=== PATIENT | female | born 1965 | race Two or more races ===

== ENCOUNTER 2020-02-19 18:46 | Emergency (ER) | payer MEDICAID ==
[~2020-02-19] VITALS: Ht 157.5 cm; Wt 63.5 kg
[2020-02-19 19:03] VITALS: BP 137/86
[2020-02-19 19:10] VITALS: BP 164/85
--- NOTE | 2020-02-19 19:27 | Emergency Room Report ---
History of Present Illness General Chief Complaint: Multiple Trauma/Fall Source: Patient Present Illness HPI Patient is a 54-year-old female presents after recent fall. She reports of increased right-sided hip pain. She had been able to ambulate since the fall. Denies loss of consciousness. Denies any other locations of pain. She denies any prior medical history. She States she fell onto a tile floor. Allergies: Coded Allergies: No Known Allergies (Unverified , 02/19/20) COVID-19 Screening Contact w/high risk pt: No Experienced COVID-19 symptoms?: No COVID-19 Testing performed DELI DEPARTMENT MANAGER: No Patient History Past Medical History: see triage record Reviewed Nursing Documentation: PMH: Agreed; PSxH: Agreed Nursing Documentation-PMH Past Medical History: No Stated History Review of Systems All Other Systems: negative except mentioned in HPI Physical Exam Vital Signs Date Time Temp Pulse Resp B/P (MAP) Pulse Ox O2 Delivery O2 Flow Rate FiO2 02/19/20 18:42 86 14 140/88 (105) 98 Room Air 02/19/20 19:03 98.0 02/19/20 19:03 100 Sp02 EP Interpretation: reviewed, normal General Appearance: normal inspection, well appearing, no apparent distress, alert, GCS 15, obese Head: atraumatic ENT: normal ENT inspection, hearing grossly normal, normal voice Neck: normal inspection, full range of motion, supple, no bony tend Respiratory: normal inspection, lungs clear, normal breath sounds, no respiratory distress, no retraction, no wheezing Cardiovascular #1: regular rate, rhythm, no edema Gastrointestinal: normal inspection, normal bowel sounds, non tender, soft, no guarding, no hernia Genitourinary: no CVA tenderness Musculoskeletal: normal inspection, back normal, other - decreased range of motion to right lower extremity. Neurologic: alert, motor strength/tone normal, coil inspector III-XII nml as tested, oriented x3, responsive, speech normal, normal inspection Psychiatric: normal inspection, judgement/insight normal, mood/affect normal Medical Decision Making Diagnostic Impression: Primary Impression: Fall Additional Impression: Muscle contusion ER Course Patient presented after a fall. Differential diagnosis include was not limited to fracture, contusion, dislocation among others. Because of complexity of patient's case laboratory tests and imaging studies were ordered. CT imaging was ordered due to the patient's recent fall. She was given pain medications.CT imaging showed no evidence of acute fracture there was noted to be a remote healing fracture of the pubic ramus to the right side see radiology report for full details. Patient was able to ambulate with crutches. She was noted to have improvement in pain. Patient was advised to follow-up with her primary care physician for recheck. She is advised to keep her leg elevated and ice the area that was having discomfort. Was advised to return if worse. She was advised to remove the Osbaldo wrap daily. The patient is advised to follow up with primary care doctor in 1-2 days. Patient is advised to return if any worsening condition or if any changes in status that are concerning. This report is dictated with [employer] group exercise instructor software which may occasionally lead to discrepancies related to use of this software. Last Vital Signs Date Time Temp Pulse Resp B/P (MAP) Pulse Ox O2 Delivery O2 Flow Rate FiO2 02/19/20 19:03 92 16 Room Air 100 02/19/20 19:03 98.0 137/86 100 Status: improved Disposition: HOME, SELF-CARE Condition: Stable Scripts Acetaminophen* (ACETAMINOPHEN EXTRA STRENGTH*) 500 Mg Tablet 500 MG ORAL Q8H PRN for Fever/Headache/Mild Pain, #30 TAB Prov: Tu Bartlett MD 02/19/20 Ibuprofen* (MOTRIN*) 600 Mg Tablet 600 MG ORAL Q8H PRN for FOR PAIN, #20 TAB 0 Refills Prov: Tu Bartlett MD 02/19/20 Tu Bartlett MD Feb 19, 2020 19:27
[2020-02-19] MEDS ORDERED: Morphine Sulfate 4mg/ml Inj (IV USE ONLY) IVP ONE (19:45)
[2020-02-19 19:46] LABS: BASOPHILS % (AUTO) 0.6 % (0.0-2.0); EOSINOPHILS % (AUTO) 1.9 % (0.0-3.0); HEMATOCRIT 42.6 % (37.0-47.0); HEMOGLOBIN 14.4 G/DL (12.0-16.0); LYMPHOCYTES % (AUTO) 19.4 % (20.0-45.0); MEAN CORPUSCULAR VOLUME 86 FL (80-99); MONOCYTES % (AUTO) 2.5 % (1.0-10.0); NEUTROPHILS % (AUTO) 75.7 % (45.0-75.0); PLATELET COUNT 392 K/UL (150-450); RED BLOOD COUNT 4.95 M/UL (4.20-5.40); RED CELL DISTRIBUTION WIDTH 12.4 % (11.6-14.8); WHITE BLOOD COUNT 11.5 K/UL (4.8-10.8)
[2020-02-19 19:48] LABS: ANION GAP 11 mmol/L (5-15); BLOOD UREA NITROGEN 13 mg/dL (7-18); CALCIUM 9.7 MG/DL (8.5-10.1); CARBON DIOXIDE 27 MMOL/L (21-32); CHLORIDE 105 MMOL/L (98-107); CREATININE 1.1 MG/DL (0.55-1.30); POTASSIUM 3.4 MMOL/L (3.5-5.1); SODIUM 143 MMOL/L (136-145)
[2020-02-19 19:53] LABS: ALANINE AMINOTRANSFERASE 29 U/L (12-78); ALBUMIN 3.5 G/DL (3.4-5.0); ALBUMIN/GLOBULIN RATIO 0.9 (1.0-2.7); ALKALINE PHOSPHATASE 118 U/L (46-116); ASPARTATE AMINO TRANSFERASE 18 U/L (15-37); BILIRUBIN,TOTAL 0.2 MG/DL (0.2-1.0)
--- NOTE | 2020-02-19 20:14 | Diagnostic Imaging Report ---
EXAM: CT Pelvis Without Intravenous Contrast CLINICAL HISTORY: Pelvic pain. History of fall. TECHNIQUE: Axial computed tomography images of the pelvis without intravenous contrast. CTDI is 7.20 mGy and DLP is 249.40 mGy-cm. One or more of the following dose reduction techniques were used: automated exposure control, adjustment of the mA and/or kV according to patient size, use of iterative reconstruction technique. COMPARISON: None. FINDINGS: Bowel: Ischiorectal fat is clean. No obstruction. No mucosal thickening. Appendix: No findings to suggest acute appendicitis. Intraperitoneal space: Unremarkable. No free air. No significant fluid collection. Bladder: Bladder is underdistended Ward No stones. Reproductive: Bulbous uterus suggestive of fibroids. Bones/joints: No acute fractures of the superior and inferior pubic rami are noted. Findings suggestive of old healed fractures of the right superior and inferior pubic rami. Mild to moderate osteoarthritic changes about the hip joints. No acute fracture about the proximal femurs bilaterally. Hip joints are intact. Mild to moderate osteoarthritic changes about the sacroiliac joints. Lower lumbar transverse processes are unremarkable. Sacrum and coccyx are unremarkable. The L4-L5 vertebral bodies are maintained in height. No dislocation. Soft tissues: Unremarkable. Vasculature: Unremarkable. No lower abdominal aortic aneurysm. Lymph nodes: Unremarkable. No enlarged lymph nodes. Other findings: Spinous processes are unremarkable. IMPRESSION: 1. No acute fracture or dislocation detected about the bony pelvis. 2. Uterine fibroid suggested.
[2020-02-19] MEDS ORDERED: ACETAMINOPHEN500 M3 ORAL (20:49)
[2020-02-19] MEDS ORDERED: IBUPROFEN600 M1 ORAL (20:49)
[2020-02-19 20:55] VITALS: BP 170/100
[2020-02-19] MEDS ORDERED: Ketorolac 30mg Inj IV ONE (21:00)
[2020-02-19 21:45] VITALS: BP 163/88
--- NOTE | 2020-02-20 14:11 | Diagnostic Imaging Report ---
Indication: Pain, status post fall Technique: One view of the pelvis, 2 views of the right hip Comparison: none Findings: There are old healed fracture deformities of the right superior and inferior pubic rami. No acute fractures. No dislocations. The joint spaces are preserved Impression: No acute bony trauma
== END 2020-02-19 21:45 | disposition home or self-care (01) ==
LOC: EDBD 18:46 → EMR 19:00
DX: S70.01XA Contusion of right hip, initial encounter (principal); W01.0XXA Fall on same level from slipping, tripping and stumbling without subsequent striking against object, initial encounter; Y93.9 Activity, unspecified; Y92.9 Unspecified place or not applicable
CPT/HCPCS: 36415; 72192; 73501; 80053; 85025; 86850; 86900; 86901; 96374; 96375; J1885; J2270; J2405; Z7502; 99284

== ENCOUNTER 2020-05-25 18:28 | Emergency (ER) | payer MEDICAID ==
[~2020-05-25] VITALS: Ht 157.5 cm; Wt 67.6 kg
[~2020-05-25 18:28] MED LIST: ACETAMINOPHEN500 M3 ORAL; IBUPROFEN600 M1 ORAL
[2020-05-25 18:40] VITALS: BP 187/99
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
--- NOTE | 2020-05-25 19:16 | NUR ---
HAND-OFF: Report given to SUMANTH Chang.
--- NOTE | 2020-05-25 19:51 | Diagnostic Imaging Report ---
EXAM: CT Head Without Intravenous Contrast CLINICAL HISTORY: TRAUMA TECHNIQUE: Axial computed tomography images of the head/brain without intravenous contrast. CTDI is 53.4 mGy and DLP is 958.3 mGy-cm. One or more of the following dose reduction techniques were used: automated exposure control, adjustment of the mA and/or kV according to patient size, use of iterative reconstruction technique. COMPARISON: No relevant prior studies available. FINDINGS: Brain: Unremarkable. No hemorrhage. No edema. Ventricles: Unremarkable. Bones/joints: Unremarkable. No acute fracture. Soft tissues: Unremarkable. Sinuses: Unremarkable as visualized. Mastoid air cells: Unremarkable as visualized. IMPRESSION: No acute intracranial abnormality.
--- NOTE | 2020-05-25 19:58 | Diagnostic Imaging Report ---
EXAM: CT Maxillofacial Without Intravenous Contrast CLINICAL HISTORY: TRAUMA TECHNIQUE: Axial computed tomography images of the face without intravenous contrast. CTDI is 15.3 mGy and DLP is 324.6 mGy-cm. One or more of the following dose reduction techniques were used: automated exposure control, adjustment of the mA and/or kV according to patient size, use of iterative reconstruction technique. COMPARISON: No relevant prior studies available. FINDINGS: Bones/joints: Possible nasal bone fracture, versus chronic changes. Soft tissues: Unremarkable. Orbits: Unremarkable. Sinuses: Unremarkable. IMPRESSION: Possible nasal bone fracture, versus chronic changes.
--- NOTE | 2020-05-25 20:03 | Diagnostic Imaging Report ---
EXAM: CT Cervical Spine Without Intravenous Contrast CLINICAL HISTORY: TRAUMA TECHNIQUE: Axial computed tomography images of the cervical spine without intravenous contrast. CTDI is 20.2 mGy and DLP is 456.5 mGy-cm. One or more of the following dose reduction techniques were used: automated exposure control, adjustment of the mA and/or kV according to patient size, use of iterative reconstruction technique. COMPARISON: No relevant prior studies available. FINDINGS: Vertebrae: No acute fracture or subluxation. Discs/spinal canal/neural foramina: Multilevel degenerative changes. Soft tissues: Unremarkable. IMPRESSION: No acute fracture or subluxation.
--- NOTE | 2020-05-25 20:03 | Diagnostic Imaging Report ---
EXAM: CT Chest Without Intravenous Contrast CLINICAL HISTORY: TRAUMA TECHNIQUE: Axial computed tomography images of the chest without intravenous contrast. CTDI is 8.1 mGy and DLP is 505.7 mGy-cm. One or more of the following dose reduction techniques were used: automated exposure control, adjustment of the mA and/or kV according to patient size, use of iterative reconstruction technique. COMPARISON: No relevant prior studies available. FINDINGS: Lungs: Unremarkable. No consolidation. Pleural space: Unremarkable. No pneumothorax. No significant effusion. Heart: Unremarkable. Bones/joints: No acute fracture. Soft tissues: Unremarkable. Vasculature: Unremarkable. Lymph nodes: Unremarkable. IMPRESSION: No acute fracture. EXAM: CT Abdomen and Pelvis Without Intravenous Contrast CLINICAL HISTORY: TRAUMA TECHNIQUE: Axial computed tomography images of the abdomen and pelvis without intravenous contrast. CTDI is 8.1 mGy and DLP is 505.7 mGy-cm. One or more of the following dose reduction techniques were used: automated exposure control, adjustment of the mA and/or kV according to patient size, use of iterative reconstruction technique. COMPARISON: No relevant prior studies available. FINDINGS: ABDOMEN: Liver: Unremarkable. Gallbladder and bile ducts: Unremarkable. No calcified stones. Pancreas: Unremarkable. Spleen: Unremarkable. Adrenals: Unremarkable. Kidneys and ureters: Unremarkable. No hydronephrosis. Stomach and bowel: No mechanical bowel obstruction. Colonic diverticulosis. No diverticulitis. PELVIS: Appendix: No findings to suggest acute appendicitis. Bladder: Unremarkable. Reproductive: Unremarkable as visualized. ABDOMEN and PELVIS: Intraperitoneal space: No free air. Bones/joints: No acute fracture. Soft tissues: Unremarkable. Vasculature: Unremarkable. Lymph nodes: Unremarkable. IMPRESSION: No acute fracture.
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
[2020-05-25 20:10] LABS: EOSINOPHILS % (AUTO) 3.9 % (0.0-3.0); HEMATOCRIT 43.1 % (37.0-47.0); HEMOGLOBIN 14.7 G/DL (12.0-16.0); LYMPHOCYTES % (AUTO) 29.7 % (20.0-45.0); MEAN CORPUSCULAR VOLUME 87 FL (80-99); MONOCYTES % (AUTO) 5.4 % (1.0-10.0); PLATELET COUNT 378 K/UL (150-450); RED BLOOD COUNT 4.96 M/UL (4.20-5.40); RED CELL DISTRIBUTION WIDTH 12.1 % (11.6-14.8); WHITE BLOOD COUNT 9.4 K/UL (4.8-10.8)
[2020-05-25 20:22] LABS: CALCIUM 8.8 MG/DL (8.5-10.1); POTASSIUM 3.4 MMOL/L (3.5-5.1)
[2020-05-25 20:26] LABS: ALBUMIN 3.3 G/DL (3.4-5.0); ALBUMIN/GLOBULIN RATIO 0.9 (1.0-2.7); BILIRUBIN,TOTAL 0.3 MG/DL (0.2-1.0)
[2020-05-25] MEDS ORDERED: IBUPROFEN600 M1 ORAL (20:47)
[2020-05-25] MEDS ORDERED: ROBAXIN-500MG ORAL (20:47)
[2020-05-25 20:50] VITALS: BP 148/89
--- NOTE | 2020-05-25 20:50 | NUR ---
ED Nurse Note: Toradol 30mg adminsitered IM per CARROLL Glez.
--- NOTE | 2020-05-25 20:52 | NUR ---
ER DISCHARGE NOTE: Patient is cleared to be discharged per ERMD, pt is aox4, on room air, with stable vital signs. pt was given dc and prescription instructions, pt was able to verbalize understanding, pt id band and iv site removed intact without complications. pt is able to ambulate with steady gait. pt took all belongings. pt stable upon discharge.
[2020-05-25] MEDS ORDERED: Ketorolac 30mg Inj ONE (20:54)
[2020-05-25] MEDS ORDERED: Ketorolac 30mg Inj IM ONE (21:00)
== END 2020-05-25 20:52 | disposition home or self-care (01) ==
LOC: EMR 18:50
DX: S02.2XXA Fracture of nasal bones, initial encounter for closed fracture (principal); S30.1XXA Contusion of abdominal wall, initial encounter; S00.93XA Contusion of unspecified part of head, initial encounter; S16.1XXA Strain of muscle, fascia and tendon at neck level, initial encounter; I10 Essential (primary) hypertension; Y04.2XXA Assault by strike against or bumped into by another person, initial encounter; Y93.89 Activity, other specified; Y92.512 Supermarket, store or market as the place of occurrence of the external cause
CPT/HCPCS: 36415; 70450; 70486; 71250; 72125; 74176; 80053; 85025; 96372; J1885; Z7502; 99284